=== PATIENT | male | born 1965 | race Hispanic/Latino ===

== ENCOUNTER 2024-02-17 02:27 | Inpatient (IN) | payer OTHER ==
[~2024-02-17] VITALS: Ht 182.9 cm; Wt 117.9 kg
[2024-02-17] VITALS (9 sets, daily range): BP systolic 131–178; BP diastolic 72–96; PULSE 71–76; RESP 16–18; TEMP 97.9–99.4; O2SAT 95–99
[~2024-02-17 02:27] MED LIST: Z BUPROPION HCL PO; Z.0.GLUCOSAMINE1000; Z.0.SINGULAIR10 MG PO; Z.0.TERBINAFINE HC25 PO; [UNRECOGNIZED DRUG - OTHER] PO; [UNRECOGNIZED DRUG - OTHER] PO
[2024-02-17] MEDS ORDERED: IOPAMIDOL 370 MG/ML 100 ML INFUS..BTL INJ ONE (02:57)
[2024-02-17] MEDS: FAMOTIDINE 20 MG/2 ML VIAL IV STA (03:10)
[2024-02-17] MEDS: ONDANSETRON HCL INJ 2MG/ML 2ML 2 MG/ML VIAL IV STA (03:11)
[2024-02-17] MEDS: SODIUM CHLORIDE 0.9% 1000ML 1,000 ML IV STA (03:11)
[2024-02-17] MEDS: Morphine 4mg INJECTION 4 MG/ML INJ IV STA (04:02)
[2024-02-17] MEDS ORDERED: PIPERACILLIN/TAZOBACTAM 3.375 GM VIAL ONE (04:40)
[2024-02-17] MEDS: Morphine 4mg INJECTION 4 MG/ML INJ IV PRN (05:00)
[2024-02-17] MEDS: SODIUM CHLORIDE 0.9% 1000ML 1,000 ML IV SCH (05:01)
[2024-02-17] MEDS ORDERED: AMLODIPINE BESYL5 MG PO (06:15)
[2024-02-17] MEDS ORDERED: LOSARTAN POTAS100 MG PO (06:50)
[2024-02-17] MEDS ORDERED: DEXTROSE 50% SYRINGE 50 ML IV PRN (13:30)
[2024-02-17] MEDS: ONDANSETRON HCL INJ 2MG/ML 2ML 2 MG/ML VIAL IV PRN (13:32)
[2024-02-17] MEDS: INSULIN LISPRO 100 UNIT/1 ML 3ML VIAL SQ SCH (16:30)
[2024-02-17] MEDS: ACETAMINOPHEN 325 MG TAB PO PRN (21:29)
[2024-02-18] VITALS: BP 120/80; PULSE 75; RESP 18; TEMP 98.4; O2SAT 98
[2024-02-18 04:00] VITALS: BP 145/90; PULSE 73; RESP 18; TEMP 98.7; O2SAT 99
[2024-02-18 08:00] VITALS: BP 140/99; PULSE 85; RESP 19; TEMP 100.6; O2SAT 97
[2024-02-18] MEDS: AMLODIPINE BESYLATE 5 MG TAB PO SCH (09:00)
[2024-02-18] MEDS: LOSARTAN POTASSIUM 25 MG TAB PO SCH (09:00)
[2024-02-18] MEDS: Morphine 4mg INJECTION 4 MG/ML INJ ONE (12:44)
[2024-02-18] MEDS ORDERED: MIDAZOLAM HCL 2 MG/2 ML VIAL ONE ×2 (12:52→12:55)
[2024-02-18] MEDS ORDERED: FENTANYL CITRATE/PF 100MCG/2 ML INJ ONE ×2 (12:55→13:04)
[2024-02-18] MEDS ORDERED: Morphine 10mg syringe 10 MG/ML INJ ONE (13:04)
[2024-02-18 15:48] LABS: BASOPHILS % 0.2 % (0.0-1.0); EOSINOPHILS # (AUTO) 0.1 (0.0-0.4); EOSINOPHILS % 1.1 % (0.0-6.0); HEMATOCRIT 41.4 % (38.2-49.6); HEMOGLOBIN 13.4 g/dL (14.0-18.0); LYMPHOCYTES % 18.5 % (18.0-39.1); MEAN CORPUSCULAR HEMOGLOBIN 29.5 pg (28-32); MEAN CORPUSCULAR HGB CONC 32.4 g/dL (31-35); MONOCYTES # (AUTO) 0.9 (0.2-0.8); MONOCYTES % 8.4 % (4.4-11.3); NEUTROPHILS # (AUTO) 7.8 (2.1-6.9); NEUTROPHILS % 71.5 % (38.7-80.0); PLATELET COUNT 188 x10e3/uL (140-360); RED BLOOD COUNT 4.55 x10e6/uL (4.3-5.7); RED CELL DISTRIBUTION WIDTH 13.5 % (11.7-14.4); WHITE BLOOD COUNT 10.92 x10e3/uL (4.8-10.8)
[2024-02-18 16:05] LABS: ANION GAP 11.8 mmol/L (8-16); CALCIUM 8.5 mg/dL (8.4-10.2); CREATININE, SERUM 0.91 mg/dL (0.72-1.25); POTASSIUM 3.8 mmol/L (3.5-5.1)
[2024-02-18 16:18] VITALS: BP 140/94; PULSE 73; RESP 19; TEMP 99.5; O2SAT 100
[2024-02-18 20:00] VITALS: BP 107/64; PULSE 76; RESP 20; TEMP 98.9; O2SAT 97
[2024-02-18 20:02] VITALS: BP 140/94; PULSE 73; RESP 19; TEMP 99.5; O2SAT 100
[2024-02-18] MEDS: DIPHENHYDRAMINE HCL 25 MG CAP PO ONE (22:09)
[2024-02-19] VITALS (8 sets, daily range): BP systolic 115–131; BP diastolic 67–88; PULSE 61–81; RESP 17–18; TEMP 97.1–99.2; O2SAT 94–98
[2024-02-19] MEDS ORDERED: BUPIVACAINE 0.25% 30ML SDV ONE (08:36)
[2024-02-19] MEDS ORDERED: BUPIVACAINE 0.5%/EPI 30 ML SDV INJ ONE (08:36)
[2024-02-19] MEDS ORDERED: SUGAMMADEX SODIUM 200 MG/2 ML VIAL IV ONE (10:21)
[2024-02-19] MEDS ORDERED: FENTANYL CITRATE/PF 100MCG/2 ML INJ ONE (12:59)
[2024-02-19] MEDS ORDERED: ROCURONIUM BROMIDE 10 MG/ML 5ML VIAL IV ONE (13:00)
[2024-02-19] MEDS ORDERED: PROPOFOL IV EMULSION 10 MG/ML 20 ML VIAL ONE (13:00)
[2024-02-19] MEDS ORDERED: HYDRALAZINE HCL 20 MG/ML VIAL ONE (13:00)
[2024-02-19] MEDS ORDERED: LIDOCAINE HCL 2% LOCAL INJ 5 ML SDV VIAL INJ ONE (13:00)
[2024-02-19] MEDS ORDERED: SUCCINYLCHOLINE CHLORIDE 20 MG/ML 10ML VIAL ONE (13:00)
[2024-02-19] MEDS ORDERED: KETOROLAC TROMETHAMINE 30 MG/ML VIAL ONE (13:00)
[2024-02-19] MEDS ORDERED: SEVOFLURANE INHAL SOLN 250 ML PEN BTL ONE (13:00)
[2024-02-19] MEDS ORDERED: METOCLOPRAMIDE HCL 10 MG/2ML VIAL ONE (13:00)
[2024-02-19] MEDS ORDERED: ONDANSETRON HCL INJ 2MG/ML 2ML 2 MG/ML VIAL ONE (13:00)
[2024-02-19] MEDS ORDERED: DEXAMETHASONE SOD PHOS INJ 4 MG/ML SDV ONE (13:00)
[2024-02-19] MEDS: ARTIFICIAL TEARS (OPTH) 15 ML BTL OU PRN (16:10)
[2024-02-19] MEDS: Morphine 2mg Syringe 2 MG/ML SYR IV PRN (19:50)
[2024-02-20] VITALS (9 sets, daily range): BP systolic 113–132; BP diastolic 72–92; PULSE 61–75; RESP 18–20; TEMP 97.8–98.4; O2SAT 93–98
[2024-02-20] MEDS: DIPHENHYDRAMINE HCL 25 MG CAP PO PRN (06:04)
[2024-02-20] MEDS: TRAMADOL HCL 50 MG TAB PO PRN (06:04)
[2024-02-20 18:35] LABS: ANION GAP 12.5 mmol/L (8-16); CALCIUM 8.2 mg/dL (8.4-10.2); CREATININE, SERUM 0.88 mg/dL (0.72-1.25); POTASSIUM 3.5 mmol/L (3.5-5.1)
[2024-02-21] VITALS: BP 133/87; PULSE 62; RESP 20; TEMP 98.4; O2SAT 100
[2024-02-21 04:00] VITALS: BP 133/70; PULSE 60; RESP 20; TEMP 98.6; O2SAT 98
[2024-02-21 05:58] LABS: BASOPHILS % 0.4 % (0.0-1.0); EOSINOPHILS # (AUTO) 0.3 (0.0-0.4); EOSINOPHILS % 3.5 % (0.0-6.0); HEMATOCRIT 35.2 % (38.2-49.6); HEMOGLOBIN 11.5 g/dL (14.0-18.0); LYMPHOCYTES # (AUTO) 2.5 (1.0-3.2); LYMPHOCYTES % 29.4 % (18.0-39.1); MEAN CORPUSCULAR HEMOGLOBIN 29.4 pg (28-32); MEAN CORPUSCULAR HGB CONC 32.7 g/dL (31-35); MONOCYTES # (AUTO) 0.5 (0.2-0.8); MONOCYTES % 6.1 % (4.4-11.3); NEUTROPHILS # (AUTO) 5.1 (2.1-6.9); NEUTROPHILS % 60.1 % (38.7-80.0); PLATELET COUNT 224 x10e3/uL (140-360); RED BLOOD COUNT 3.91 x10e6/uL (4.3-5.7); RED CELL DISTRIBUTION WIDTH 13.1 % (11.7-14.4); WHITE BLOOD COUNT 8.49 x10e3/uL (4.8-10.8)
[2024-02-21 06:48] LABS: ALBUMIN 2.8 g/dL (3.5-5.0); ALBUMIN/GLOBULIN RATIO 0.9 (0.8-2.0); ANION GAP 10.4 mmol/L (8-16); BILIRUBIN,TOTAL 0.8 mg/dL (0.2-1.2); CALCIUM 8.4 mg/dL (8.4-10.2); CREATININE, SERUM 0.98 mg/dL (0.72-1.25)
[2024-02-21 06:49] LABS: POTASSIUM 3.4 mmol/L (3.5-5.1)
[2024-02-21 08:01] VITALS: BP 146/93; PULSE 59; RESP 18; TEMP 98.3; O2SAT 95
[2024-02-21 08:10] VITALS: BP 146/93; PULSE 59; RESP 18; TEMP 98.3; O2SAT 95
[2024-02-21 12:10] VITALS: BP 127/79; PULSE 62; RESP 17; TEMP 98.6; O2SAT 97
[2024-02-21] MEDS ORDERED: ONDANSETRON HCL 4 MG ORAL DISINTEGRATING TAB PO PRN (13:00)
[2024-02-21] MEDS: POTASSIUM CHLORIDE 10MEQ EA PO ONE (14:14)
[2024-02-21] MEDS ORDERED: ULTRAM 50MG50 MG PO (14:32)
[2024-02-21] MEDS ORDERED: augmentin PO (14:34)
[2024-02-22] MEDS ORDERED: PANTOPRAZOLE SOD 40 MG TABEC PO SCH (07:30)
== END 2024-02-21 14:55 | disposition home or self-care (01) | DRG 418 ==
LOC: FSED 02:41 → ERHOLD 04:25 → MED/SURG3 05:55
PROVIDERS: ADMIT Internal Medicine; ATTEND Internal Medicine
PROC: 0FT44ZZ Resection of Gallbladder, Percutaneous Endoscopic Approach (ICD-10-PCS; principal; 2024-02-19 09:14)
DX: K80.00 Calculus of gallbladder with acute cholecystitis without obstruction (principal); K57.32 Diverticulitis of large intestine without perforation or abscess without bleeding; K76.0 Fatty (change of) liver, not elsewhere classified; E11.65 Type 2 diabetes mellitus with hyperglycemia; I10 Essential (primary) hypertension; N28.9 Disorder of kidney and ureter, unspecified; Z11.52 Encounter for screening for COVID-19; E66.9 Obesity, unspecified; Z68.35 Body mass index [BMI] 35.0-35.9, adult; Z88.5 Allergy status to narcotic agent
CPT/HCPCS: 0223U; 36415; 71260; 74177; 76705; 78227; 80048; 80053; 80076; 81003; 82948; 84484; 85025; 88304; 93005; 99284; A9537; J0330; J0360; J1100; J1885; J2001; J2250; J2270; J2405; J2470; J2543; J2765; J7030; Q9967

== ENCOUNTER 2024-03-17 22:35 | Inpatient (IN) | payer OTHER ==
[~2024-03-17] VITALS: Ht 182.9 cm; Wt 117.9 kg
[~2024-03-17 22:35] MED LIST changes: +AMLODIPINE BESYL5 MG PO; +LOSARTAN POTAS100 MG PO; +ULTRAM 50MG50 MG PO; +augmentin PO
[2024-03-17] MEDS: FAMOTIDINE 20 MG/2 ML VIAL IV STA (23:18)
[2024-03-17] MEDS: ONDANSETRON HCL INJ 2MG/ML 2ML 2 MG/ML VIAL IV STA (23:18)
[2024-03-17] MEDS: SODIUM CHLORIDE 0.9% 1000ML 1,000 ML IV STA ×2 (23:18→23:19)
[2024-03-17] MEDS: ACETAMINOPHEN 325 MG TAB PO STA (23:19)
[2024-03-17 23:22] LABS: BASOPHILS % 0.2 % (0.0-1.0); EOSINOPHILS # (AUTO) 0.1 (0.0-0.4); EOSINOPHILS % 1.3 % (0.0-6.0); HEMATOCRIT 42.7 % (38.2-49.6); HEMOGLOBIN 14.3 g/dL (14.0-18.0); LYMPHOCYTES # (AUTO) 1.5 (1.0-3.2); LYMPHOCYTES % 14.8 % (18.0-39.1); MEAN CORPUSCULAR HEMOGLOBIN 29.6 pg (28-32); MEAN CORPUSCULAR HGB CONC 33.5 g/dL (31-35); MEAN CORPUSCULAR VOLUME 88.4 fL (81-99); MONOCYTES # (AUTO) 0.8 (0.2-0.8); MONOCYTES % 7.4 % (4.4-11.3); NEUTROPHILS # (AUTO) 7.8 (2.1-6.9); PLATELET COUNT 196 x10e3/uL (140-360); RED BLOOD COUNT 4.83 x10e6/uL (4.3-5.7); RED CELL DISTRIBUTION WIDTH 13.3 % (11.7-14.4); WHITE BLOOD COUNT 10.26 x10e3/uL (4.8-10.8)
[2024-03-17 23:30] LABS: CLARITY,URINE CLEAR (CLEAR); COLOR,URINE YELLOW (YELLOW)
[2024-03-17 23:31] LABS: BACTERIA,URINE RARE /HPF; BILIRUBIN,URINE NEGATIVE (NEGATIVE); EPITHELIAL CELLS,URINE RARE /LPF; GLUCOSE, URINE NEGATIVE (NEGATIVE); KETONES,URINE NEGATIVE (NEGATIVE); LEUKOCYTE ESTERASE ,URINE NEGATIVE (NEGATIVE); NITRITE,URINE NEGATIVE (NEGATIVE); PH,URINE 6 (5 - 7); PROTEIN,URINE DIPSTICK NEGATIVE (NEGATIVE); RBC,URINE 0-5 /HPF (0-5); URINE UROBILINOGEN 1 mg/dL (0.2 - 1); WBC,URINE (MAN) 0-5 /HPF (0-5)
[2024-03-17 23:41] LABS: ALBUMIN 3.9 g/dL (3.5-5.0); ALBUMIN/GLOBULIN RATIO 1.1 (0.8-2.0); ANION GAP 13.8 mmol/L (8-16); CALCIUM 10.8 mg/dL (8.4-10.2); CREATININE, SERUM 1.28 mg/dL (0.72-1.25); POTASSIUM 3.8 mmol/L (3.5-5.1); TOTAL PROTEIN 7.3 g/dL (6.5-8.1)
[2024-03-17 23:42] LABS: TROPONIN I 0.004 ng/mL (0-0.300)
[2024-03-18] VITALS (7 sets, daily range): BP systolic 135–145; BP diastolic 56–96; PULSE 56–66; RESP 16–20; TEMP 97.6–98.4; O2SAT 97–100
[2024-03-18] MEDS: Morphine 4mg INJECTION 4 MG/ML INJ IV ONE (00:21)
[2024-03-18] MEDS: SODIUM CHLORIDE 0.9% 1000ML 1,000 ML IV SCH (03:04)
[2024-03-18] MEDS: ONDANSETRON HCL INJ 2MG/ML 2ML 2 MG/ML VIAL IV PRN (06:20)
[2024-03-18] MEDS: Morphine 4mg INJECTION 4 MG/ML INJ IV PRN (06:20)
[2024-03-18 21:35] LABS: ALBUMIN 2.9 g/dL (3.5-5.0); ALBUMIN/GLOBULIN RATIO 1.1 (0.8-2.0); ANION GAP 12.9 mmol/L (8-16); BILIRUBIN,TOTAL 2.4 mg/dL (0.2-1.2); CREATININE, SERUM 0.9 mg/dL (0.72-1.25); TOTAL PROTEIN 5.5 g/dL (6.5-8.1)
[2024-03-18 21:36] LABS: AMYLASE 1251 U/L (25-125)
[2024-03-18 21:52] LABS: CALCIUM 7.3 mg/dL (8.4-10.2)
[2024-03-18 21:53] LABS: POTASSIUM 2.9 mmol/L (3.5-5.1)
[2024-03-18 21:54] LABS: LIPASE > 1200 U/L (8-78)
[2024-03-18] MEDS: LACTATED RINGER'S 1,000 ML INJ SCH (22:27)
[2024-03-18 22:47] LABS: MAGNESIUM 1.6 MG/DL (1.3-2.1); PHOSPHORUS 2.9 MG/DL (2.3-4.7)
[2024-03-18] MEDS: MAGNESIUM SULFATE 2GM/50ML 50 ML IV ONE (23:54)
[2024-03-19] VITALS (10 sets, daily range): BP systolic 92–163; BP diastolic 80–92; PULSE 64–93; RESP 16–20; TEMP 98–99.9; O2SAT 93–100
[2024-03-19] MEDS: POTASSIUM CHLORIDE 10MEQ EA PO ONE (00:20)
[2024-03-19] MEDS ORDERED: HYDRALAZINE HCL 20 MG/ML VIAL IV PRN (00:30)
[2024-03-19 05:41] LABS: BASOPHILS % 0.2 % (0.0-1.0); EOSINOPHILS # (AUTO) 0.3 (0.0-0.4); EOSINOPHILS % 2.8 % (0.0-6.0); HEMATOCRIT 38.1 % (38.2-49.6); HEMOGLOBIN 12.3 g/dL (14.0-18.0); LYMPHOCYTES # (AUTO) 1.6 (1.0-3.2); LYMPHOCYTES % 16.9 % (18.0-39.1); MEAN CORPUSCULAR HEMOGLOBIN 29.6 pg (28-32); MEAN CORPUSCULAR HGB CONC 32.3 g/dL (31-35); MEAN CORPUSCULAR VOLUME 91.6 fL (81-99); MONOCYTES # (AUTO) 0.6 (0.2-0.8); MONOCYTES % 6.7 % (4.4-11.3); NEUTROPHILS # (AUTO) 6.9 (2.1-6.9); NEUTROPHILS % 72.9 % (38.7-80.0); PLATELET COUNT 146 x10e3/uL (140-360); RED BLOOD COUNT 4.16 x10e6/uL (4.3-5.7); RED CELL DISTRIBUTION WIDTH 13.5 % (11.7-14.4); WHITE BLOOD COUNT 9.51 x10e3/uL (4.8-10.8)
[2024-03-19 06:01] LABS: ALBUMIN 3.1 g/dL (3.5-5.0); ANION GAP 12.1 mmol/L (8-16); BILIRUBIN,TOTAL 2.2 mg/dL (0.2-1.2); CALCIUM 8.5 mg/dL (8.4-10.2); CREATININE, SERUM 0.94 mg/dL (0.72-1.25); TOTAL PROTEIN 6.1 g/dL (6.5-8.1)
[2024-03-19 06:03] LABS: POTASSIUM 3.1 mmol/L (3.5-5.1)
[2024-03-19 06:46] LABS: FREE T4 (FREE THYROXINE) 1.12 ng/dL (0.8-1.8); THYROID STIMULATING HORMONE 0.448 uIU/mL (0.350-4.940)
[2024-03-19] MEDS: DIPHENHYDRAMINE HCL 25 MG CAP PO ONE (16:53)
[2024-03-20] VITALS (8 sets, daily range): BP systolic 129–159; BP diastolic 86–98; PULSE 55–69; RESP 18; TEMP 98.2–99.2; O2SAT 95–98
[2024-03-20 06:39] LABS: BASOPHILS % 0.2 % (0.0-1.0); EOSINOPHILS # (AUTO) 0.3 (0.0-0.4); EOSINOPHILS % 3.4 % (0.0-6.0); LYMPHOCYTES # (AUTO) 1.8 (1.0-3.2); LYMPHOCYTES % 19.3 % (18.0-39.1); MEAN CORPUSCULAR HEMOGLOBIN 29.6 pg (28-32); MEAN CORPUSCULAR HGB CONC 33.3 g/dL (31-35); MEAN CORPUSCULAR VOLUME 88.7 fL (81-99); MONOCYTES # (AUTO) 0.7 (0.2-0.8); MONOCYTES % 7.8 % (4.4-11.3); NEUTROPHILS # (AUTO) 6.5 (2.1-6.9); NEUTROPHILS % 68.9 % (38.7-80.0); PLATELET COUNT 152 x10e3/uL (140-360); RED BLOOD COUNT 4.06 x10e6/uL (4.3-5.7); RED CELL DISTRIBUTION WIDTH 13.2 % (11.7-14.4)
[2024-03-20 07:05] LABS: BILIRUBIN,TOTAL 1.4 mg/dL (0.2-1.2); CALCIUM 8.5 mg/dL (8.4-10.2); CREATININE, SERUM 0.85 mg/dL (0.72-1.25)
[2024-03-20 07:06] LABS: ALBUMIN 2.8 g/dL (3.5-5.0); ALBUMIN/GLOBULIN RATIO 0.9 (0.8-2.0); TOTAL PROTEIN 5.9 g/dL (6.5-8.1)
[2024-03-20 07:20] LABS: ANION GAP 14.1 mmol/L (8-16)
[2024-03-20 07:23] LABS: POTASSIUM 3.1 mmol/L (3.5-5.1)
[2024-03-20 11:12] LABS: MAGNESIUM 1.8 MG/DL (1.3-2.1)
[2024-03-20] MEDS: POTASSIUM PHOSPHATE 15 MM in SODIUM CHLORIDE 0.9% 250ML 250 ML IV SCH (14:54)
[2024-03-20] MEDS ORDERED: ONDANSETRON ODT4 MG PO (18:06)
[2024-03-20] MEDS ORDERED: TYLENOL325 M2 PO (18:07)
[2024-03-20] MEDS: POTASSIUM CHLORIDE 10MEQ EA PO ONE (18:07)
[2024-03-21 06:19] LABS: HEPATITIS B SURFACE AG (P) Negative; HEPATITIS C ANTIBODY Non Reactive
== END 2024-03-20 19:36 | disposition home or self-care (01) | DRG 440 ==
LOC: ER 22:45 → ERHOLD 03-18 03:23 → MED/SURG2 03-18 12:48
PROVIDERS: ADMIT Internal Medicine; ATTEND Internal Medicine
DX: K85.90 Acute pancreatitis without necrosis or infection, unspecified (principal); R74.01 Elevation of levels of liver transaminase levels; I10 Essential (primary) hypertension; E87.6 Hypokalemia; E83.39 Other disorders of phosphorus metabolism; R53.81 Other malaise; R74.8 Abnormal levels of other serum enzymes; Z11.52 Encounter for screening for COVID-19; Z90.49 Acquired absence of other specified parts of digestive tract; Z88.5 Allergy status to narcotic agent
CPT/HCPCS: 36415; 74177; 80053; 80320; 81001; 82150; 82550; 83036; 83690; 83735; 84100; 84439; 84443; 84484; 85025; 93005; 94799; 99284; J2270; J2405; J2543; J3475; J7030; J7050; U0002